=== PATIENT | male | born 2000 | race Caucasian/White ===

== ENCOUNTER 2023-01-27 13:04 | Outpatient (CLI) | payer BC, SELFPAY | END 2023-01-27 13:05 | disposition home or self-care (01) | PROVIDERS: Visit Provider Family Medicine | DX: Z11.3 Encounter for screening for infections with a predominantly sexual mode of transmission (principal) | CPT/HCPCS: 86592; 86593; 86703; 86706; 86708; 86803; 87340; 87491; 87591 ==